=== PATIENT | female | born 1950 | race Two or more races ===

== ENCOUNTER 2019-11-26 19:53 | Emergency (ER) | payer OTHER, MEDICAID ==
[~2019-11-26] VITALS: Ht 154.9 cm; Wt 64.4 kg
[2019-11-26] MEDS ORDERED: ACETAMINOPHEN 325 MG TAB PO ONE (21:45)
[2019-11-26 22:38] LABS: Basophils # (auto) 0.1 10 ^3/uL (0-0.2); Basophils % (auto) 0.4 % (0.0-2.0); Eosinophils # (auto) 0 10 ^3/uL (0-0.8); Eosinophils % (auto) 0.1 % (0.0-7.0); Hematocrit 37.6 % (36.0-46.0); Hemoglobin 12.7 g/dL (12.2-16.2); Lymphocytes # (auto) 0.8 10 ^3/uL (0.4-5.4); Lymphocytes % (auto) 5.6 % (10.0-50.0); Mean Corpuscular Hemoglobin 29.9 pg (28.0-32.0); Mean Corpuscular Hgb Conc. 33.8 g/dL (32.0-36.0); Mean Corpuscular Volume 88.4 fL (80.0-100.0); Monocytes % (auto) 13.9 % (0.0-12.0); Neutrophils # (auto) 11.4 10 ^3/uL (1.6-8.6); Platelet Count (auto) 186 10^3/uL (140-450); Red Blood Cells 4.26 10^6/uL (4.0-5.20); Red Cell Distribution Width 12.6 % (11.8-14.3); White Blood Cell 14.2 10^3/uL (4.4-10.8)
[2019-11-26 22:57] LABS: Chloride 96 mmol/L (98-107); Potassium 4.5 mmol/L (3.5-5.1); Sodium 129 mmol/L (136-145)
[2019-11-26 23:00] LABS: INR 1.03 (0.9-1.15); Partial Thromboplastin Time 23.7 sec (23.64-32.05)
[2019-11-26 23:05] LABS: Urine Bacteria MANY /hpf (None Seen); Urine Blood 1+ /uL (Negative); Urine Budding Yeast FEW /hpf (None Seen); Urine Specific Gravity 1.015 (1.001-1.035); Urine Sperm PRESENT /hpf (None Seen); Urine WBC 352 /hpf (0 - 5); Urine WBC Clumps PRESENT /hpf (None Seen)
[2019-11-26 23:05] LABS: Alanine Aminotransferase 18 U/L (13-56); Albumin 2.9 g/dL (3.4-5.0); Alkaline Phosphatase 95 U/L (45-117); Anion Gap 7 (5-15); Aspartate Aminotransferase 11 U/L (15-37); BUN/Creatinine Ratio 23.6; Bilirubin, Total 0.5 mg/dL (0.2-1.0); Blood Urea Nitrogen 25 mg/dL (7-18); Calcium 8.8 mg/dL (8.5-10.1); Carbon Dioxide 26 mmol/L (21-32); GFR African American 63 mL/min; GFR Non-African American 52 mL/min; Glucose 355 mg/dL (74-106); Total Protein 8.2 g/dL (6.4-8.2)
[2019-11-27 01:28] VITALS: BP 127/84
[2019-11-27] MEDS ORDERED: CIPROFLOXACIN HYDROCHLORIDE 250 MG TAB PO ONE (01:30)
[2019-11-27] MEDS ORDERED: CIPROFLOXACIN HCL 500 MG TAB PO ONE (01:45)
[2019-11-27] MEDS ORDERED: ACETAMINOPHEN 500 MG TAB PO ONE (01:45)
== END 2019-11-27 02:06 | disposition home or self-care (01) ==
LOC: EDBD 19:53 → ER 19:53
DX: J02.0 Streptococcal pharyngitis (principal); N39.0 Urinary tract infection, site not specified; R06.02 Shortness of breath; Z20.828 Contact with and (suspected) exposure to other viral communicable diseases
CPT/HCPCS: 36415; 71045; 80053; 81001; 83605; 83880; 84484; 85025; 85610; 85730; 87040; 87804; 87880; 93005; 99285; C9803; U0003

== ENCOUNTER 2019-11-29 17:13 | Inpatient (IN) | payer OTHER, MEDICAID ==
[~2019-11-29] VITALS: Ht 162.6 cm; Wt 74.4 kg
[2019-11-29] MEDS: InsuLIN R (HUMAN) 100 UNITS in SODIUM CHL 0.9% 99 ML IV SCH (02:01)
[2019-11-29] MEDS ORDERED: SODIUM CHLORIDE 0.9% 1,000 ML IVB ONE (17:51)
[2019-11-29] MEDS ORDERED: ONDANSETRON HCL 4 MG/2 ML VIAL IV ONE (18:00)
[2019-11-29 18:43] LABS: Basophils # (auto) 0.1 10 ^3/uL (0-0.2); Basophils % (auto) 0.4 % (0.0-2.0); Eosinophils # (auto) 0 10 ^3/uL (0-0.8); Hematocrit 38.1 % (36.0-46.0); Hemoglobin 11.9 g/dL (12.2-16.2); Lymphocytes # (auto) 1.1 10 ^3/uL (0.4-5.4); Lymphocytes % (auto) 4.9 % (10.0-50.0); Mean Corpuscular Hemoglobin 29.1 pg (28.0-32.0); Mean Corpuscular Hgb Conc. 31.1 g/dL (32.0-36.0); Mean Corpuscular Volume 93.5 fL (80.0-100.0); Monocytes # (auto) 2.2 10 ^3/uL (0-1.3); Neutrophils # (auto) 18.8 10 ^3/uL (1.6-8.6); Neutrophils % (auto) 84.7 % (37.0-80.0); Platelet Count (auto) 217 10^3/uL (140-450); Red Blood Cells 4.08 10^6/uL (4.0-5.20); Red Cell Distribution Width 14.1 % (11.8-14.3); White Blood Cell 22.2 10^3/uL (4.4-10.8)
[2019-11-29 18:52] LABS: Calcium 8.8 mg/dL (8.5-10.1); INR 1.15 (0.9-1.15); Magnesium 2.6 mg/dL (1.6-2.6); Partial Thromboplastin Time 26.5 sec (23.64-32.05); Potassium 4.3 mmol/L (3.5-5.1)
[2019-11-29] MEDS ORDERED: SODIUM CHLORIDE 0.9% 1,000 ML IV ONE (19:00)
[2019-11-29 19:01] LABS: BUN/Creatinine Ratio 31.8; Bilirubin, Total 0.4 mg/dL (0.2-1.0); Total Protein 7.6 g/dL (6.4-8.2)
[2019-11-29] MEDS ORDERED: DEXTROSE (50%) 50ML SYRG IV PRN ×2 (19:30→21:45)
[2019-11-29 19:41] LABS: Albumin 2.3 g/dL (3.4-5.0)
[2019-11-29] MEDS ORDERED: PANTOPRAZOLE 40 MG/10 ML VIAL INJ IV ONE (20:45)
[2019-11-29] MEDS ORDERED: cefTRIAXone 1GM/50ML D5W 50 ML IV ONE (20:45)
[2019-11-29] MEDS ORDERED: SODIUM BICARBONATE 8.4 % INJ 50ML VIAL IV ONE ×2 (21:30)
[2019-11-29] MEDS ORDERED: INSULIN LANTUS (GLARGINE) 1 /0.01ml (100units/ml) SC ONE (21:45)
[2019-11-29] MEDS ORDERED: NITROGLYCERIN 0.4 MG SL TAB SL PRN (21:45)
[2019-11-29] MEDS ORDERED: ZOLPIDEM TARTRATE 5 MG TAB PO PRN (21:45)
[2019-11-29] MEDS ORDERED: MORPHINE SULF INJ 2 MG/ML SYRINGE 1ML IV PRN (21:45)
[2019-11-29] MEDS ORDERED: LORazepam 0.5 MG TAB PO PRN (21:45)
[2019-11-29] MEDS ORDERED: POTASSIUM CHL 20MEQ/100ML 200 ML IV PRN (21:45)
[2019-11-29] MEDS ORDERED: ENOXAPARIN SOD 80 MG/0.8ML SYRINGE SC SCH (22:00)
[2019-11-29] MEDS: ACCU-CHEK COMFORT CURVE STRIP VI SCH (22:51)
[2019-11-29] MEDS: CARVEDILOL 3.125 MG TAB PO SCH (23:14)
[2019-11-29] MEDS: ATORVASTATIN 20 MG TAB PO SCH (23:15)
[2019-11-29] MEDS ORDERED: SODIUM CHLORIDE 0.9% 1,000 ML IV SCH (23:19)
[2019-11-29] MEDS: SODIUM CHLORIDE 0.9% 1,000 ML IV SCH (23:55)
[2019-11-30] MEDS: SODIUM CHLORIDE 0.9% 1,000 ML IV SCH ×2 (01:00→03:00)
[2019-11-30 01:06] LABS: BUN/Creatinine Ratio 32.8; Calcium 8.9 mg/dL (8.5-10.1)
[2019-11-30] MEDS ORDERED: SODIUM CHLORIDE 0.9% 1,000 ML IV SCH ×3 (01:19→03:43)
[2019-11-30] MEDS: D5W/SOD CHL 0.45%/KCL 20MEQ 1,000 ML IV SCH ×2 (02:00→03:26)
[2019-11-30] MEDS: ACCU-CHEK COMFORT CURVE STRIP VI SCH ×6 (02:00→18:04)
[2019-11-30] MEDS: InsuLIN R (HUMAN) 100 UNITS in SODIUM CHL 0.9% 99 ML IV SCH ×4 (02:00→06:30)
[2019-11-30] MEDS ORDERED: InsuLIN REG 1unit/0.01ml Soln (100units/ml) ONE (02:24)
[2019-11-30 04:30] LABS: Potassium 3.8 mmol/L (3.5-5.1)
[2019-11-30 04:36] LABS: BUN/Creatinine Ratio 36.9; Calcium 7.6 mg/dL (8.5-10.1)
[2019-11-30] MEDS ORDERED: DEXTROSE (50%) 50ML SYRG IV PRN ×2 (07:45→11:30)
[2019-11-30] MEDS ORDERED: InsuLIN REG 1unit/0.01ml Soln (100units/ml) SC SCH ×2 (08:00→14:00)
[2019-11-30] MEDS ORDERED: ACCU-CHEK COMFORT CURVE STRIP VI SCH (08:00)
[2019-11-30] MEDS: INSULIN LANTUS (GLARGINE) 1 /0.01ml (100units/ml) SC SCH (08:44)
[2019-11-30] MEDS ORDERED: ASPirin 81 mg TAB PO SCH (10:00)
[2019-11-30] MEDS ORDERED: CLOPIDOGREL BISULFATE 75 MG TAB PO SCH (10:00)
[2019-11-30] MEDS ORDERED: INSULIN LANTUS (GLARGINE) 1 /0.01ml (100units/ml) SC SCH (10:00)
[2019-11-30] MEDS: DOCUSATE SOD 100 MG CAP PO SCH (10:21)
[2019-11-30] MEDS: CARVEDILOL 3.125 MG TAB PO SCH ×2 (10:22→22:12)
[2019-11-30] MEDS: LISINOPRIL 10 MG TAB PO SCH (10:23)
[2019-11-30 10:27] LABS: BUN/Creatinine Ratio 34.4; Calcium 7.8 mg/dL (8.5-10.1); Potassium 3.7 mmol/L (3.5-5.1)
--- NOTE | 2019-11-30 10:50 | NUR ---
Telemetry admit from ER [facility] admitted to Telemetry unit after SBAR received. Patient oriented to Sarah Knutson, RN primary RN, unit, room, bed, and unit policies regarding patient care and visiting hours. Patient now on continuous telemetry monitoring, tele box # 71 and telemetry reading on arrival to unit is SR 80's. Weighed by bedscale and encouraged to call if they need something. All questions and concerns addressed, patient verbalized understanding.
--- NOTE | 2019-11-30 11:03 | NUR ---
Dr. Stacy at bedside Updating patient on POC. New orders received/carried out. See orders.
[2019-11-30 11:09] VITALS: BP 142/65
[2019-11-30] MEDS ORDERED: GLIP10TA9 PO (11:39)
[2019-11-30] MEDS ORDERED: ACET-1156 PO (11:39)
[2019-11-30] MEDS ORDERED: GABA300C10 PO (11:39)
[2019-11-30] MEDS ORDERED: LOSA-69 PO (11:39)
[2019-11-30] MEDS ORDERED: SIMV-8 PO (11:39)
[2019-11-30] MEDS ORDERED: INSUINJ2 SC (11:39)
[2019-11-30] MEDS: PIPERACILLIN-TAZOB 3.375GM 100 ML IV SCH ×2 (12:08→17:55)
[2019-11-30] MEDS: InsuLIN REG 1unit/0.01ml Soln (100units/ml) SC SCH ×3 (12:22→18:05)
[2019-11-30 13:00] VITALS: BP 139/66
--- NOTE | 2019-11-30 14:00 | NUR ---
Urine sample Patient aware of need for urine sample for UA. Supplies at bedside. Will continue to monitor.
[2019-11-30] MEDS: D5W/SOD CHLO 0.9% 1,000 ML IV SCH (15:42)
--- NOTE | 2019-11-30 16:01 | NUR ---
Abdominal pain Patient reporting 10/10 abdominal pain. Patient has no PRN pain medications. Contacting Dr. Stacy for orders.
--- NOTE | 2019-11-30 16:07 | NUR ---
New orders New orders received from Dr. Stacy for Morphine 1mg IV Q3hr PRN. Orders carried out.
[2019-11-30] MEDS: MORPHINE SULF INJ 2 MG/ML SYRINGE 1ML IV PRN ×2 (16:22→21:29)
[2019-11-30 16:37] VITALS: BP 144/60
--- NOTE | 2019-11-30 16:40 | NUR ---
Spoke to Jameel Adam (GI) Discussed POC. New orders received for morning labs. Per Dr. Jair ugalde to advance diet to clear liquid. MD will not address GI issues (possible EGD, acute cholecystitis) until after C procedure and once cardiac clearance is obtained from Dr. Higgins. Will carry out orders.
[2019-11-30] MEDS: SUCRALFATE 1 GM/10 ML ORAL SUSP PO SCH ×2 (17:55→22:12)
[2019-11-30 18:08] LABS: BUN/Creatinine Ratio 31.8; Potassium 3.5 mmol/L (3.5-5.1)
--- NOTE | 2019-11-30 18:45 | NUR ---
Urine collected and sent to lab. Will continue to monitor.
[2019-11-30 19:51] LABS: Urine Bacteria NONE SEEN /hpf (None Seen); Urine Blood 2+ /uL (Negative); Urine Budding Yeast FEW /hpf (None Seen); Urine Specific Gravity 1.017 (1.001-1.035); Urine WBC 24 /hpf (0 - 5)
[2019-11-30 21:12] VITALS: BP 135/60
[2019-11-30] MEDS: PANTOPRAZOLE 40 MG/10 ML VIAL INJ IV SCH (22:12)
[2019-11-30] MEDS: ATORVASTATIN 20 MG TAB PO SCH (22:13)
[2019-12-01] MEDS: PIPERACILLIN-TAZOB 3.375GM 100 ML IV SCH ×4 (00:01→17:57)
[2019-12-01] MEDS: D5W/SOD CHLO 0.9% 1,000 ML IV SCH (00:50)
[2019-12-01] MEDS: MORPHINE SULF INJ 2 MG/ML SYRINGE 1ML IV PRN ×6 (01:06→22:26)
[2019-12-01] MEDS: ACCU-CHEK COMFORT CURVE STRIP VI SCH ×6 (02:13→22:20)
[2019-12-01] MEDS: InsuLIN REG 1unit/0.01ml Soln (100units/ml) SC SCH ×5 (02:21→17:57)
[2019-12-01 05:00] VITALS: BP 112/46
[2019-12-01] MEDS: SUCRALFATE 1 GM/10 ML ORAL SUSP PO SCH ×4 (06:01→22:19)
[2019-12-01] MEDS: INSULIN LANTUS (GLARGINE) 1 /0.01ml (100units/ml) SC SCH (06:26)
--- NOTE | 2019-12-01 08:00 | NUR ---
Morning note Patient resting in bed with even and unlabored respirations, no distress noted. Instructed patient on POC, fall precautions and to call for assistance as needed. Patient verbalized understanding. Fall precautions in place with call light within reach.
[2019-12-01 08:02] LABS: Basophils # (auto) 0 10 ^3/uL (0-0.2); Basophils % (auto) 0.2 % (0.0-2.0); Eosinophils # (auto) 0 10 ^3/uL (0-0.8); Hematocrit 36.7 % (36.0-46.0); Hemoglobin 11.8 g/dL (12.2-16.2); Lymphocytes # (auto) 1.1 10 ^3/uL (0.4-5.4); Lymphocytes % (auto) 6.5 % (10.0-50.0); Mean Corpuscular Hemoglobin 29.1 pg (28.0-32.0); Mean Corpuscular Hgb Conc. 32.2 g/dL (32.0-36.0); Mean Corpuscular Volume 90.2 fL (80.0-100.0); Monocytes # (auto) 1.4 10 ^3/uL (0-1.3); Monocytes % (auto) 8.4 % (0.0-12.0); Neutrophils # (auto) 14.2 10 ^3/uL (1.6-8.6); Neutrophils % (auto) 84.9 % (37.0-80.0); Platelet Count (auto) 193 10^3/uL (140-450); Red Blood Cells 4.07 10^6/uL (4.0-5.20); Red Cell Distribution Width 13.5 % (11.8-14.3); White Blood Cell 16.7 10^3/uL (4.4-10.8)
[2019-12-01 08:19] LABS: Potassium 3.2 mmol/L (3.5-5.1)
--- NOTE | 2019-12-01 08:30 | NUR ---
Patient transferred self to BSC Standby assistance provided by this RN. Patient transferred self to bed with no complications. Call light within reach.
[2019-12-01 08:31] LABS: Albumin 2.1 g/dL (3.4-5.0); BUN/Creatinine Ratio 29.4; Bilirubin, Total 0.3 mg/dL (0.2-1.0); Calcium 8.4 mg/dL (8.5-10.1); Magnesium 2.4 mg/dL (1.6-2.6); Total Protein 6.9 g/dL (6.4-8.2)
[2019-12-01] MEDS: PANTOPRAZOLE 40 MG/10 ML VIAL INJ IV SCH ×2 (08:33→22:19)
[2019-12-01] MEDS: DOCUSATE SOD 100 MG CAP PO SCH (08:33)
[2019-12-01] MEDS: LISINOPRIL 10 MG TAB PO SCH (08:33)
[2019-12-01] MEDS: CARVEDILOL 3.125 MG TAB PO SCH ×2 (08:34→22:19)
[2019-12-01 09:00] VITALS: BP 161/76
[2019-12-01 09:05] LABS: INR 1.05 (0.9-1.15); Partial Thromboplastin Time 25.5 sec (23.64-32.05)
--- NOTE | 2019-12-01 10:29 | NUR ---
Returned family member's phone call for update Called Sun, patient's daughter, to update on patient's status & POC. Password obtained. Update provided. Requested Sun to contact Laurie, patient's daughter, to update as well. Sun verbalized understanding.
--- NOTE | 2019-12-01 10:41 | NUR ---
RE: Potassium level Message left for Dr. Stacy to notify of potassium level. Addendum: 12/01/19 at 1126 by Jaye Gray RN verbalized understanding. Order received an read back. Updated MD that [facility] is planned for Tuesday, December 03, 2019, per NEEAN Padilla, in brush clearing laborer. verbalized understanding.
--- NOTE | 2019-12-01 11:05 | NUR ---
production technician at bedside
--- NOTE | 2019-12-01 11:05 | NUR ---
Consents signed per MD order. Consents placed in hard chart.
[2019-12-01] MEDS ORDERED: POTASSIUM CHLORIDE 40 MEQ, LIDOCAINE 1% (LOCAL ANESTH.) 4 ML in SODIUM CHL 0.9% 100 ML IV ONE (11:30)
[2019-12-01] MEDS ORDERED: DEXTROSE (50%) 50ML SYRG IV PRN (11:30)
[2019-12-01] MEDS: D5W/SOD CHL 0.45% 1,000 ML IV SCH (11:54)
[2019-12-01 13:00] VITALS: BP 142/37
--- NOTE | 2019-12-01 13:46 | NUR ---
Medication not available - called pharmacy K-rider not available. Called pharmacy to notify. Medication to be delivered to unit per pharmacy customer care specialist.
--- NOTE | 2019-12-01 14:10 | NUR ---
Family called for an update Kristina, patient's daughter, called for an update on patient's status & POC. Password obtained. Update provided.
--- NOTE | 2019-12-01 14:12 | NUR ---
Medication not available - patient off unit K-rider continues not to be available. Patient off unit at nuclear medicine.
--- NOTE | 2019-12-01 15:18 | NUR ---
Medication not available - called pharmacy (3rd time) K-rider not available. Called pharmacy to notify. Medication to be delivered to unit per clinical pharmacy specialist, Pauline.
--- NOTE | 2019-12-01 15:35 | NUR ---
Patient continues to be off unit at nuclear medicine.
--- NOTE | 2019-12-01 15:55 | NUR ---
Patient returned to unit via wheelchair. Respirations even and unlabored, no distress noted.
[2019-12-01 17:00] VITALS: BP 166/83
--- NOTE | 2019-12-01 18:21 | NUR ---
Paged Dr. Huitron to notify of HIDA scan result.
--- NOTE | 2019-12-01 18:39 | NUR ---
Closing note Patient resting in bed with even and unlabored respirations, no distress noted. Fall precautions in place with call light within reach. BSC at bedside.
--- NOTE | 2019-12-01 19:14 | NUR ---
Spoke with Dr. Huitron RE: MARCELA araya MD verbalized understanding. Continue NPO except medications order.
--- NOTE | 2019-12-01 19:26 | NUR ---
Care endorsed to NEENA Calloway.
--- NOTE | 2019-12-01 19:31 | NUR ---
Notified TAI Calloway that PRN IV Morphine administered per MD order. Elli verbalized understanding.
--- NOTE | 2019-12-01 19:35 | NUR ---
Opening Shift Note Received report from Jaye CHAUDHARY. Assumed care of patient, awake and alert. No S/S of distress/SOB. Complaining of epigastric pain, pain medication just given. Instructed on POC and to call for assist PRN. Fall precaution measures in place, will continue to monitor for changes Q1hr and PRN.
--- NOTE | 2019-12-01 21:19 | NUR ---
Family called for update, informed about the POC, they verbalized understanding.
[2019-12-01] MEDS ORDERED: InsuLIN REG 1unit/0.01ml Soln (100units/ml) SC SCH (22:00)
[2019-12-01] MEDS: ATORVASTATIN 20 MG TAB PO SCH (22:20)
[2019-12-01 23:29] VITALS: BP 160/83
[2019-12-02] MEDS: D5W/SOD CHL 0.45% 1,000 ML IV SCH ×2 (01:39→12:55)
[2019-12-02] MEDS: MORPHINE SULF INJ 2 MG/ML SYRINGE 1ML IV PRN ×4 (02:46→22:19)
[2019-12-02] MEDS: ONDANSETRON HCL 4 MG/2 ML VIAL IV PRN (03:15)
[2019-12-02 05:33] VITALS: BP 165/77
[2019-12-02] MEDS: PIPERACILLIN-TAZOB 3.375GM 100 ML IV SCH ×5 (05:55→18:30)
[2019-12-02] MEDS: SUCRALFATE 1 GM/10 ML ORAL SUSP PO SCH ×4 (06:23→22:21)
[2019-12-02] MEDS: ACCU-CHEK COMFORT CURVE STRIP VI SCH ×4 (06:41→22:21)
[2019-12-02] MEDS: INSULIN LANTUS (GLARGINE) 1 /0.01ml (100units/ml) SC SCH (06:42)
[2019-12-02] MEDS: InsuLIN REG 1unit/0.01ml Soln (100units/ml) SC SCH ×4 (06:42→22:21)
--- NOTE | 2019-12-02 07:09 | NUR ---
Pain medication given. Instructed to keep NPO for procedure today. Endorsed care to Jaye CHAUDHARY.
--- NOTE | 2019-12-02 07:23 | NUR ---
Patient transferred to cath lab radiological technologist via hospital bed. Respirations even and unlabored, no distress noted. IV's patent with no s/s of infiltration or phlebitis.
[2019-12-02] MEDS ORDERED: IODIXANOL 320MG/ML 100ML BTL IV ONE (07:42)
[2019-12-02] MEDS ORDERED: LIDOCAINE 2%HCL (LOCAL ANESTH.) INJ 20ML MDV ONE (07:42)
[2019-12-02 07:56] LABS: Albumin 2.1 g/dL (3.4-5.0); Calcium 7.9 mg/dL (8.5-10.1)
[2019-12-02 08:00] LABS: Bilirubin, Total 0.4 mg/dL (0.2-1.0); Total Protein 6.8 g/dL (6.4-8.2)
[2019-12-02] MEDS ORDERED: ANGIOMAX 250 MG VIAL IV ONE (08:00)
[2019-12-02] MEDS ORDERED: HEPARIN SODIUM (PORCINE) 5000 UNITS/ML 1ML VIAL ONE ×2 (08:00→08:38)
[2019-12-02 08:01] LABS: Basophils # (auto) 0 10 ^3/uL (0-0.2); Basophils % (auto) 0.2 % (0.0-2.0); Eosinophils # (auto) 0 10 ^3/uL (0-0.8); Eosinophils % (auto) 0.1 % (0.0-7.0); Hematocrit 37.2 % (36.0-46.0); Hemoglobin 12.2 g/dL (12.2-16.2); Lymphocytes # (auto) 1.6 10 ^3/uL (0.4-5.4); Lymphocytes % (auto) 7.6 % (10.0-50.0); Mean Corpuscular Hgb Conc. 32.7 g/dL (32.0-36.0); Mean Corpuscular Volume 88.8 fL (80.0-100.0); Monocytes % (auto) 9.6 % (0.0-12.0); Neutrophils # (auto) 17.1 10 ^3/uL (1.6-8.6); Neutrophils % (auto) 82.5 % (37.0-80.0); Nucleated Red Blood Cells % 0.1 %; Platelet Count (auto) 203 10^3/uL (140-450); Red Blood Cells 4.19 10^6/uL (4.0-5.20); Red Cell Distribution Width 13.6 % (11.8-14.3); White Blood Cell 20.7 10^3/uL (4.4-10.8)
[2019-12-02] MEDS ORDERED: MIDAZOLAM HCL 1MG/1ML-2 ML VIAL ONE ×2 (08:01→13:39)
[2019-12-02] MEDS ORDERED: VERAPAMIL 2.5MG/ML INJ 2ML VIAL IV ONE (08:01)
[2019-12-02] MEDS ORDERED: fentaNYL CITRATE 100 MCG/2 ML VL ONE ×2 (08:01→13:39)
[2019-12-02] MEDS ORDERED: ONDANSETRON HCL 4 MG/2 ML VIAL ONE (08:02)
[2019-12-02] MEDS ORDERED: SODIUM CHL 0.9% 0 ML ONE (08:02)
[2019-12-02 08:21] LABS: Potassium 2.9 mmol/L (3.5-5.1)
--- NOTE | 2019-12-02 08:26 | NUR ---
RE: Critical potassium Received critical potassium level from Dorita Clemons RN. This RN notified Dr. Stacy. verbalized understanding. Order received and read back to verify. Patient is at quality assurance/r&d lab technician. Notified Tatianna quality assurance/r&d lab technician RN. RN verbalized understanding. Notified pharmacist to send medication to quality assurance/r&d lab technician per Dr. Stacy's order. Pharmacist verbalized understanding.
[2019-12-02] MEDS ORDERED: POTASSIUM CHLORIDE 60 MEQ, LIDOCAINE 1% (LOCAL ANESTH.) 6 ML in SODIUM CHL 0.9% 500 ML IV ONE (08:30)
--- NOTE | 2019-12-02 08:37 | NUR ---
RE: Intervention Patient off unit at procedure. Addendum: 12/02/19 at 1010 by Jaye Gray RN Amended: Links added.
[2019-12-02] MEDS ORDERED: SPIRONOLACTONE 25 MG TAB PO ONE (09:15)
--- NOTE | 2019-12-02 09:22 | NUR ---
Family called for an update Patient's daughter called for an update on patient's status & POC. Password obtained. Update provided.
[2019-12-02 09:30] VITALS: BP 134/81
--- NOTE | 2019-12-02 09:30 | NUR ---
Patient returned to unit via hospital bed Respirations even and unlabored, no distress noted. Catheterization site assessed for any bleeding, redness or swelling. Vasc-band device in place. Site is clean, dry and intact. Radial pulse on affected arm assessed for positive tissue perfusion. Patient instructed on need to notify staff immediately if any pain, burning or wetness to site, and any lower back pain. Patient verbalized understanding. Fall precautions in place with call light within reach; bed alarm on for safety.
--- NOTE | 2019-12-02 09:57 | NUR ---
2ml of air removed from vasc-band No bleeding or swelling noted. Site is clean, dry and intact.
[2019-12-02] MEDS: DOCUSATE SOD 100 MG CAP PO SCH (10:00)
[2019-12-02] MEDS: PANTOPRAZOLE 40 MG/10 ML VIAL INJ IV SCH ×2 (10:00→22:19)
[2019-12-02] MEDS: CARVEDILOL 3.125 MG TAB PO SCH ×2 (10:06→22:20)
[2019-12-02] MEDS: LISINOPRIL 10 MG TAB PO SCH (10:07)
--- NOTE | 2019-12-02 10:12 | NUR ---
2ml of air removed from vasc-band No bleeding or swelling noted. Site is clean, dry and intact.
--- NOTE | 2019-12-02 10:29 | NUR ---
2ml of air removed from vasc-band No bleeding or swelling noted. Site is clean, dry and intact.
--- NOTE | 2019-12-02 10:53 | NUR ---
2ml of air removed from vasc-band No bleeding or swelling noted. Site is clean, dry and intact.
--- NOTE | 2019-12-02 11:05 | NUR ---
2ml of air removed from vasc-band No bleeding or swelling noted. Site is clean, dry and intact.
--- NOTE | 2019-12-02 11:23 | NUR ---
MD was at bedside - Dr. Stacy POC discussed with this RN. Notified MD of elevated WBC and patient's report of pain and nausea. MD verbalized understanding. Orders received and read back to verify.
[2019-12-02] MEDS ORDERED: METOCLOPRAMIDE HCL 5MG/ml INJ 2ml VIAL IV PRN (11:30)
[2019-12-02] MEDS ORDERED: DEXTROSE (50%) 50ML SYRG IV PRN (11:30)
--- NOTE | 2019-12-02 11:30 | NUR ---
Vasc-Band removed Cath site is dry with no ecchymosis, bleeding or swelling noted. Gauze and Tegaderm placed. Radial pulse present. Skin color WNL. No sensory deficit per patient. Respirations even and unlabored
--- NOTE | 2019-12-02 12:41 | NUR ---
Patient transferred to Pre-op via hospital bed. Respirations even and unlabored, no distress noted. K-rider being administered through IV in the LFA. Informed NEENA Blood, that IV to the RFA is infiltrated. Caitie verbalized understanding. Consents not signed due to an order not in place to consent patient and due to medications patient received this morning during catheterization procedure. Caitie verbalized understanding.
[2019-12-02 13:01] VITALS: BP 150/62
[2019-12-02] MEDS ORDERED: NEOSTIGMINE 1 MG/ML INJ (10mg/10ML VIAL) IV ONE (13:39)
[2019-12-02] MEDS ORDERED: GLYCOPYRROLATE 0.2 MG/ML 1ML VIAL IV ONE (13:39)
[2019-12-02] MEDS ORDERED: MEPERIDINE HCL (50 MG/ML) 1 ML VIAL ONE (13:39)
[2019-12-02] MEDS ORDERED: POVIDONE IODINE 10 % TOPICAL OINT 30GM TOP ONE (13:54)
[2019-12-02] MEDS ORDERED: SUCCINYLCHOLINE CHLORIDE 20 MG/ML 10ML VIAL IV ONE (13:55)
--- NOTE | 2019-12-02 14:00 | NUR ---
RE: intervention Patient off unit at procedure. Addendum: 12/02/19 at 1436 by Jaye Gray RN Amended: Links added.
[2019-12-02] MEDS ORDERED: DexAMETHasone SOD PHOS 10MG/1ML VIAL INJ ONE (14:17)
[2019-12-02] MEDS ORDERED: ETOMIDATE (2MG/ML) 20ML VIAL IV ONE (14:17)
[2019-12-02] MEDS ORDERED: ROCURONIUM 10MG/ML 10ML VIAL IV ONE (14:18)
--- NOTE | 2019-12-02 14:29 | NUR ---
Est enegy needs [id number] kcal (20-25 kcal/kg BW 76kg) est protein needs 61-76g (0.8-1g/kg BW 76kg) will reassess prn. Addendum: 12/02/19 at [address] Amended: Links added.
--- NOTE | 2019-12-02 14:36 | NUR ---
RE: Intervention Patient off unit at procedure. Addendum: 12/02/19 at 1436 by Jaye Gray RN Amended: Links added.
[2019-12-02] MEDS ORDERED: LABETALOL HCL 5 MG/ML 4ML SYRINGE IV PRN (14:45)
[2019-12-02] MEDS ORDERED: ONDANSETRON HCL 4 MG/2 ML VIAL IV PRN (14:45)
[2019-12-02] MEDS ORDERED: HYDROmorphone HCL 2 MG/ML VL IV PRN (14:45)
[2019-12-02] MEDS ORDERED: ePHEDrine SULFATE 50 MG/ML AMP IV PRN (14:45)
[2019-12-02] MEDS ORDERED: MORPHINE SULFATE 4 MG/ML SYR/VIAL IV PRN (14:45)
[2019-12-02] MEDS ORDERED: MIDAZOLAM HCL 1MG/1ML-2 ML VIAL IV PRN (14:45)
[2019-12-02] MEDS ORDERED: ACCU-CHEK COMFORT CURVE STRIP VI ONE (14:45)
--- NOTE | 2019-12-02 16:00 | NUR ---
RE: Intervention Patient off unit at procedure. Addendum: 12/02/19 at 1638 by Jaye Gray RN Amended: Links added.
--- NOTE | 2019-12-02 16:14 | NUR ---
assessment Patient is a 69 year old female who is alert and oriented. Patients cognitive abilities are intact. Prior to admission patient lived home with family and functioned independently. Patient is covid positive. Patient informed me she is able to care for her own ADLs. Per patient she will return home to her prior living arrangements post discharge and family will transport her home. Patient informed me she was vomiting and had fever so she called 911 and was admitted. Patient will be assessed prior to discharge for home oxygen needs. Patients PCP is Dr Tillman. Patient feels safe returning home on discharge. I will continue to monitor and follow up as appropriate. I informed patient she has a right to speak to a public health social worker regarding all care. I informed patient she has a right to participate in any and all discharge planning. Patient does not have a POA and advanced directive. I have offered patient information on POA and advanced directives. I informed the patient the advantages and benefits of having an Advanced Directive. Patient verbalized understanding and agreed to discharge plan home. Addendum: 12/02/19 at 1617 by Rachael WILLARD Amended: Links added.
--- NOTE | 2019-12-02 16:36 | NUR ---
RE: Intervention Patient off unit at scheduled procedure. Addendum: 12/02/19 at 1638 by Jaye Gray RN Amended: Links added.
[2019-12-02 17:00] VITALS: BP 150/62
--- NOTE | 2019-12-02 17:15 | NUR ---
patient returned to unit via hospital bed Vital signs taken, surgical site assessed for redness, swelling, or bleeding. Two surgical incision sites noted to above the umbilicus area. Third surgical incision site noted to the RLQ where REBEKAH drain is at. Dressings are clean, dry and intact. ABD is soft to palpitation. Abdominal binder in place. Patient instructed on need to inform staff immediately for any pain, swelling, bleeding or pulling or popping sensations at surgical site. Patient verbalized understanding. Fall precautions in place with bed in lowest locked position, call light within reach and bed alarm on for safety.
[2019-12-02 17:37] VITALS: BP 107/54
--- NOTE | 2019-12-02 18:30 | NUR ---
IV discontinued/IV started 22g IV started to the LHA with aseptic technique. IV secured and IV education provided. Patient verbalized understanding. Call light within reach. IV removed to the RFA with aseptic technique. Catheter intact. Dressing applied. Patient tolerated well, no trauma to site.
--- NOTE | 2019-12-02 18:58 | NUR ---
Closing note Patient resting in bed with even and unlabored respirations, no distress noted. Dressing to the abdomen is clean, dry and intact with abdomen soft to palpitation. Abdominal binder in place. Fall precautions in place with call light within reach. Bed alarm on for safety.
--- NOTE | 2019-12-02 18:58 | NUR ---
REBEKAH Drain output = 50 ml serosanguineous
--- NOTE | 2019-12-02 19:04 | NUR ---
Care endorsed to NEENA Calloway.
[2019-12-02 22:00] VITALS: BP 143/57
[2019-12-02] MEDS: ATORVASTATIN 20 MG TAB PO SCH (22:20)
[2019-12-03] MEDS: PIPERACILLIN-TAZOB 3.375GM 100 ML IV SCH ×4 (00:06→18:02)
[2019-12-03] MEDS: D5W/SOD CHL 0.45% 1,000 ML IV SCH ×2 (02:20→10:55)
[2019-12-03] MEDS: MORPHINE SULF INJ 2 MG/ML SYRINGE 1ML IV PRN ×4 (03:33→22:18)
[2019-12-03 05:00] VITALS: BP 116/59
--- NOTE | 2019-12-03 06:30 | NUR ---
REBEKAH drain output is 100ml of sanguinous fluid.
[2019-12-03] MEDS: SUCRALFATE 1 GM/10 ML ORAL SUSP PO SCH ×4 (06:33→22:01)
[2019-12-03] MEDS: ACCU-CHEK COMFORT CURVE STRIP VI SCH ×4 (06:33→22:02)
[2019-12-03] MEDS: INSULIN LANTUS (GLARGINE) 1 /0.01ml (100units/ml) SC SCH (06:33)
[2019-12-03] MEDS: InsuLIN REG 1unit/0.01ml Soln (100units/ml) SC SCH ×4 (06:34→22:24)
[2019-12-03 07:14] LABS: Basophils # (auto) 0 10 ^3/uL (0-0.2); Basophils % (auto) 0.1 % (0.0-2.0); Eosinophils # (auto) 0 10 ^3/uL (0-0.8); Hematocrit 33.1 % (36.0-46.0); Hemoglobin 10.7 g/dL (12.2-16.2); Lymphocytes # (auto) 1.4 10 ^3/uL (0.4-5.4); Lymphocytes % (auto) 6.9 % (10.0-50.0); Mean Corpuscular Hgb Conc. 32.5 g/dL (32.0-36.0); Mean Corpuscular Volume 89.2 fL (80.0-100.0); Monocytes # (auto) 1.8 10 ^3/uL (0-1.3); Monocytes % (auto) 8.5 % (0.0-12.0); Neutrophils # (auto) 17.3 10 ^3/uL (1.6-8.6); Neutrophils % (auto) 84.5 % (37.0-80.0); Nucleated Red Blood Cells % 0.1 %; Platelet Count (auto) 180 10^3/uL (140-450); Red Blood Cells 3.71 10^6/uL (4.0-5.20); Red Cell Distribution Width 13.1 % (11.8-14.3); White Blood Cell 20.5 10^3/uL (4.4-10.8)
[2019-12-03 07:25] LABS: Albumin 1.7 g/dL (3.4-5.0); Calcium 7.4 mg/dL (8.5-10.1); Magnesium 1.9 mg/dL (1.6-2.6); Potassium 3.4 mmol/L (3.5-5.1)
[2019-12-03 07:30] LABS: BUN/Creatinine Ratio 24.4; Bilirubin, Total 0.4 mg/dL (0.2-1.0); Phosphorus 1.8 mg/dL (2.5-4.90); Total Protein 5.7 g/dL (6.4-8.2)
--- NOTE | 2019-12-03 07:30 | NUR ---
Opening Shift Note Assumed care of patient, awake and alert. No S/S of distress/SOB or pain. Instructed on POC and to call for assist PRN, will continue to monitor for changes Q1hr and PRN. REBEKAH DRAIN IN PLACE. DRAINED 50 ML SANGUINOUS FLUID. ABDOMINAL BINDER IN PLACE. PT IS ENCOURAGED TO AMBULATE TO RELEASE GAS. PT VERBALIZED UNDERSTANDING.
[2019-12-03] MEDS ORDERED: POTASSIUM CHLORIDE 40 MEQ, LIDOCAINE 1% (LOCAL ANESTH.) 4 ML in SODIUM CHL 0.9% 100 ML IV ONE (08:00)
[2019-12-03 09:00] VITALS: BP 140/74
--- NOTE | 2019-12-03 10:15 | NUR ---
Midline Placement: Patient educated on need for midline placement. All risks and benefits explained and all questions and concerns addresses prior to procedure. 18g/10cm midline inserted via right cephalic vein using Ultrasound. Sterile technique utilized. Blood return obtained from lumen and flushed easily with NS using proper technique. Midline secured with saline lock; biodisc and occlusive dressing applied. Primary RN notified. Midline lot # [id number]
[2019-12-03] MEDS: DOCUSATE SOD 100 MG CAP PO SCH (10:26)
[2019-12-03] MEDS: LISINOPRIL 10 MG TAB PO SCH (10:27)
[2019-12-03] MEDS: PANTOPRAZOLE 40 MG/10 ML VIAL INJ IV SCH ×2 (10:27→22:01)
[2019-12-03] MEDS: CARVEDILOL 3.125 MG TAB PO SCH ×2 (10:27→22:02)
[2019-12-03] MEDS ORDERED: LIDOCAINE VISCOUS 2% 15ML UD ONE (12:21)
[2019-12-03] MEDS ORDERED: SODIUM CHLORIDE LOCK 10 ML ONE (12:22)
[2019-12-03] MEDS ORDERED: diphenhdrAMINE HCL 50 MG/1 ML VL ONE (12:22)
[2019-12-03 13:00] VITALS: BP 117/55
[2019-12-03] MEDS: fentaNYL CITRATE 100 MCG/2 ML VL ONE ×2 (13:34→13:35)
[2019-12-03] MEDS: MIDAZOLAM HCL 5 MG/ML-1ML VIAL ONE ×2 (13:34→13:35)
--- NOTE | 2019-12-03 17:30 | NUR ---
PT NOTES PT RESTING IN BED. GIVEN MORPHINE, IVP FOR PAIN. PT INFORMED THAT SHE WILL NEED TO START AMBULATING RADHA. PT IS EDUCATED ON THE BENEFIT OF AMBULATION S/P SURGERY AND ALSO COMPLICATIONS FROM IMMOBILITY. PT VERBALIZED UNDERSTANDING AND STATED THAT SHE WILL AMBULATE TOMORROW WITH PHYSICAL THERAPIST.
--- NOTE | 2019-12-03 17:31 | NUR ---
Pt refused PT eval. Will attempt again tomorrow.
[2019-12-03 17:37] VITALS: BP 142/82
[2019-12-03] MEDS: NYSTATIN (MOUTH-THROAT) 500,000 UNITS/5 ML SUSP MT SCH ×2 (18:02→22:01)
--- NOTE | 2019-12-03 19:20 | NUR ---
Opening Shift Note Received report from Debbie CHAUDHARY. Assumed care of patient, awake and alert. No S/S of distress/SOB or pain. Instructed on POC and to call for assist PRN, will continue to monitor for changes Q1hr and PRN.
[2019-12-03 22:00] VITALS: BP 159/77
[2019-12-03] MEDS: ATORVASTATIN 20 MG TAB PO SCH (22:01)
[2019-12-04] MEDS: PIPERACILLIN-TAZOB 3.375GM 100 ML IV SCH ×4 (00:06→17:35)
[2019-12-04] MEDS: D5W/SOD CHL 0.45% 1,000 ML IV SCH ×2 (04:50→18:15)
[2019-12-04 05:00] VITALS: BP 162/78
[2019-12-04] MEDS: NYSTATIN (MOUTH-THROAT) 500,000 UNITS/5 ML SUSP MT SCH ×4 (05:44→21:55)
[2019-12-04] MEDS: ONDANSETRON HCL 4 MG/2 ML VIAL IV PRN (05:45)
--- NOTE | 2019-12-04 06:46 | NUR ---
REBEKAH drain output is 70ml serosanguineous fluid
[2019-12-04] MEDS: ACCU-CHEK COMFORT CURVE STRIP VI SCH ×4 (06:52→22:07)
[2019-12-04] MEDS: SUCRALFATE 1 GM/10 ML ORAL SUSP PO SCH ×4 (06:52→21:56)
[2019-12-04] MEDS: INSULIN LANTUS (GLARGINE) 1 /0.01ml (100units/ml) SC SCH (06:52)
[2019-12-04] MEDS: InsuLIN REG 1unit/0.01ml Soln (100units/ml) SC SCH ×4 (06:53→22:19)
[2019-12-04] MEDS: PANTOPRAZOLE 40 MG/10 ML VIAL INJ IV SCH ×2 (08:17→21:56)
[2019-12-04] MEDS: LISINOPRIL 10 MG TAB PO SCH (08:27)
[2019-12-04] MEDS: CARVEDILOL 3.125 MG TAB PO SCH ×3 (08:28→23:00)
[2019-12-04] MEDS: DOCUSATE SOD 100 MG CAP PO SCH (08:34)
--- NOTE | 2019-12-04 08:59 | NUR ---
RE: Elevated BP - contacted MD Message left with Dr. Stacy to notify of elevated BP 172/75 mmHG, HR SR 88 bpm. Patient denies severe pain. Scheduled PO morning BP medications administered. Addendum: 12/04/19 at 0936 by Jaye Gray RN MD verbalized understanding at 0905. Continue to monitor per MD order.
[2019-12-04 09:00] VITALS: BP 155/69
--- NOTE | 2019-12-04 10:28 | NUR ---
MD was at bedside - Dr. Stacy Notified MD of patient's recent phosphorus and calcium level. MD verbalized understanding. Order received and read back to verify.
[2019-12-04 10:41] LABS: Basophils # (auto) 0 10 ^3/uL (0-0.2); Basophils % (auto) 0.1 % (0.0-2.0); Eosinophils # (auto) 0.1 10 ^3/uL (0-0.8); Eosinophils % (auto) 0.3 % (0.0-7.0); Hematocrit 31.6 % (36.0-46.0); Hemoglobin 10.4 g/dL (12.2-16.2); Lymphocytes # (auto) 1.5 10 ^3/uL (0.4-5.4); Lymphocytes % (auto) 8.6 % (10.0-50.0); Mean Corpuscular Hemoglobin 29.5 pg (28.0-32.0); Mean Corpuscular Volume 89.2 fL (80.0-100.0); Monocytes # (auto) 1.8 10 ^3/uL (0-1.3); Monocytes % (auto) 10.5 % (0.0-12.0); Neutrophils # (auto) 13.8 10 ^3/uL (1.6-8.6); Neutrophils % (auto) 80.5 % (37.0-80.0); Nucleated Red Blood Cells % 0.1 %; Platelet Count (auto) 226 10^3/uL (140-450); Red Blood Cells 3.54 10^6/uL (4.0-5.20); Red Cell Distribution Width 13.4 % (11.8-14.3); White Blood Cell 17.1 10^3/uL (4.4-10.8)
[2019-12-04] MEDS ORDERED: POTASSIUM PHOSPHATE 22 MEQ in SODIUM CHL 0.9% 100 ML IV ONE (11:00)
[2019-12-04 11:06] LABS: Albumin 1.7 g/dL (3.4-5.0); Calcium 7.5 mg/dL (8.5-10.1)
[2019-12-04 11:10] LABS: Bilirubin, Total 0.4 mg/dL (0.2-1.0); Total Protein 6.1 g/dL (6.4-8.2)
--- NOTE | 2019-12-04 11:13 | NUR ---
re-assessment Today patient is on room air. No oxygen needs today. Addendum: 12/04/19 at 1114 by Rachael WILLARD Amended: Links added.
--- NOTE | 2019-12-04 11:15 | NUR ---
Medication not available - called pharmacy K-phos not available. Called pharmacy to notify. Medication to be delivered to unit.
--- NOTE | 2019-12-04 11:20 | NUR ---
RE: Potassium level Message left for Dr. Stacy to notify of current potassium level. Addendum: 12/04/19 at 1129 by Jaye Gray RN MD sorensen order.
[2019-12-04] MEDS ORDERED: POTASSIUM CHLORIDE 60 MEQ, LIDOCAINE 1% (LOCAL ANESTH.) 6 ML in SODIUM CHL 0.9% 500 ML IV ONE (11:30)
--- NOTE | 2019-12-04 12:00 | NUR ---
RE: K-Segun Medication not able to be administered at this time due to current scheduled IV medications being administered through available IV access. Will administer when IV access is available.
--- NOTE | 2019-12-04 12:52 | NUR ---
Nutrition Followup Note Wt 75.6kg Pt was with care team at time of rounds. Pt with no new signs of distress. Pt is s/p lap wilbert with clear liquid diet. Pt with 100% po intake of CLD 11/30 and 12/02 per RN note. Will continue to monitor po advance and intake. Est enegy needs [id number] kcal (20-25 kcal/kg BW 76kg) est protein needs 61-76g (0.8-1g/kg BW 76kg) will reassess prn. Labs: GLUC 185H, BUN 20H, Ca 7.4L, Alb 2.7L BM: pt with 1 BM 12/03 per Rn note Skin: BS 18 mod risk, full details in managed care specialist note. PES: Overweight r/t caloric intake in excess of needs aeb pt with a BMI of 28.8 kg/m2 Comments: 1) Continue to monitor po intake, labs, skin 2) refer pt to [facility] on Dc 3) Continue current plan of care Expected Outcomes/Goals: 1) Advance diet as medically feasible to CCHO 60g 2) pt to consume >75% of po intake when advanced 3) f/u 2-3 days
[2019-12-04 13:00] VITALS: BP 163/68
--- NOTE | 2019-12-04 13:00 | NUR ---
RE: BP Dr. Stacy aware of patient's elevated BP. Continue to monitor per MD.
--- NOTE | 2019-12-04 15:02 | NUR ---
Medication not available - called pharmacy K-Segun not available. Called pharmacy to notify. Medication to be delivered to unit per gabrielle Jurado tech.
[2019-12-04] MEDS: MORPHINE SULF INJ 2 MG/ML SYRINGE 1ML IV PRN (15:03)
[2019-12-04 17:00] VITALS: BP 155/64
--- NOTE | 2019-12-04 18:00 | NUR ---
Patient assisted with transfer to chair at bedside Standby assistance provided by this RN. Patient tolerated transfer well with no complications noted. Fall precautions in place with call light within reach.
--- NOTE | 2019-12-04 18:15 | NUR ---
Incentive spirometer provided to patient Education provided. Patient verbalized understanding. Patient demonstrated proper use.
--- NOTE | 2019-12-04 18:46 | NUR ---
Closing note Patient resting in bed with even and unlabored respirations, no distress noted. Dressings to the abdomen is clean, dry and intact. Abdominal binder in place. Patient reports pain as tolerable. Dressing to the left wrist s/p heart cath is clean, dry and intact. Fall precautions in place with call light within reach.
--- NOTE | 2019-12-04 18:46 | NUR ---
REBEKAH Drain output = 60 ml serosanguineous
--- NOTE | 2019-12-04 19:30 | NUR ---
Care endorsed to NEENA Curry.
--- NOTE | 2019-12-04 20:00 | NUR ---
Opening Shift Note Assumed care of patient, awake and alert, oriented x 4, follows direction. On room air with even and unlabored respirations, no S/S of distress or SOB. Patient is s/p laporscopic cholecystectomy, active bowels sounds, abd soft upon palpation, denies nausea at this time. Noted medial upper abdominal incisions x 2, dressing are clean, dry and intact. Noted REBEKAH drain to RLQ with REBEKAH bulb to suction, minimal serosanguineous drainage.Patient reported loose bowel movement today. Patient is able to turn independently in bed and reported walking th hallways with physical therapy using a walker. Bed in lowest locked position with side rails up x2 and call light within reach. Instructed on POC and to call for assist PRN, will continue to monitor for changes Q1hr and PRN.
[2019-12-04] MEDS: ATORVASTATIN 20 MG TAB PO SCH (21:56)
[2019-12-04 22:00] VITALS: BP 153/58
[2019-12-05] MEDS: PIPERACILLIN-TAZOB 3.375GM 100 ML IV SCH ×4 (00:07→17:40)
[2019-12-05] MEDS: MORPHINE SULF INJ 2 MG/ML SYRINGE 1ML IV PRN ×4 (03:42→21:36)
[2019-12-05 04:59] VITALS: BP 134/74
[2019-12-05] MEDS: SUCRALFATE 1 GM/10 ML ORAL SUSP PO SCH ×4 (05:38→21:37)
[2019-12-05] MEDS: NYSTATIN (MOUTH-THROAT) 500,000 UNITS/5 ML SUSP MT SCH ×4 (06:11→21:36)
[2019-12-05] MEDS: ACCU-CHEK COMFORT CURVE STRIP VI SCH ×4 (06:11→22:34)
[2019-12-05] MEDS: INSULIN LANTUS (GLARGINE) 1 /0.01ml (100units/ml) SC SCH (06:15)
[2019-12-05] MEDS: InsuLIN REG 1unit/0.01ml Soln (100units/ml) SC SCH ×4 (06:16→22:42)
[2019-12-05] MEDS: ONDANSETRON HCL 4 MG/2 ML VIAL IV PRN ×2 (06:19→15:39)
[2019-12-05 06:34] LABS: Basophils # (auto) 0 10 ^3/uL (0-0.2); Basophils % (auto) 0.1 % (0.0-2.0); Eosinophils # (auto) 0.1 10 ^3/uL (0-0.8); Eosinophils % (auto) 1.1 % (0.0-7.0); Hematocrit 29.3 % (36.0-46.0); Hemoglobin 9.7 g/dL (12.2-16.2); Lymphocytes # (auto) 1.6 10 ^3/uL (0.4-5.4); Lymphocytes % (auto) 12.8 % (10.0-50.0); Mean Corpuscular Hemoglobin 29.5 pg (28.0-32.0); Mean Corpuscular Hgb Conc. 33.2 g/dL (32.0-36.0); Mean Corpuscular Volume 88.9 fL (80.0-100.0); Monocytes # (auto) 1.8 10 ^3/uL (0-1.3); Neutrophils # (auto) 9.2 10 ^3/uL (1.6-8.6); Nucleated Red Blood Cells % 0.1 %; Platelet Count (auto) 213 10^3/uL (140-450); Red Blood Cells 3.29 10^6/uL (4.0-5.20); White Blood Cell 12.7 10^3/uL (4.4-10.8)
[2019-12-05 06:48] LABS: Calcium 7.1 mg/dL (8.5-10.1); Potassium 3.3 mmol/L (3.5-5.1)
--- NOTE | 2019-12-05 06:55 | NUR ---
Closing Note patient resting in bed on room air with even and unlabored respirations, no s/s of distress. Abd binder on. Bed in lowest locked position with side rails up x 2 and call light within reach.
--- NOTE | 2019-12-05 07:18 | NUR ---
REBEKAH Drain output = 65 ml serosanguineous bulb to suction.
--- NOTE | 2019-12-05 07:19 | NUR ---
Endorsed care to day shift NEENA Cornejo
--- NOTE | 2019-12-05 07:30 | NUR ---
Opening shift note Assumed care of patient from NOC NEENA Curry. Patient is AOx4, no s/s of distress or SOB noted. Bed is in lowest locked position call light is within reach and side rails are up x2. Updated patient on plan of care and patient verbalized understanding. Will continue to monitor Q1hr and PRN.
[2019-12-05] MEDS: D5W/SOD CHL 0.45% 1,000 ML IV SCH ×2 (07:35→21:58)
[2019-12-05 09:00] VITALS: BP 145/70
[2019-12-05] MEDS ORDERED: POTASSIUM CHLORIDE 40 MEQ, LIDOCAINE 1% (LOCAL ANESTH.) 4 ML in SODIUM CHL 0.9% 100 ML IV ONE (09:15)
--- NOTE | 2019-12-05 10:15 | NUR ---
Pt requested PT tx later due to diarrhea. Addendum: 12/05/19 at 1658 by Juanito Hansen COSMETIC MAKER Amended: Links added.
[2019-12-05] MEDS: PANTOPRAZOLE 40 MG/10 ML VIAL INJ IV SCH ×2 (10:48→21:36)
[2019-12-05] MEDS: DOCUSATE SOD 100 MG CAP PO SCH (10:49)
[2019-12-05] MEDS: LISINOPRIL 10 MG TAB PO SCH (10:53)
[2019-12-05] MEDS: CARVEDILOL 3.125 MG TAB PO SCH ×2 (10:53→21:52)
--- NOTE | 2019-12-05 11:40 | NUR ---
REBEKAH Drain 30 mL of serosanguineous fluid emptied from drain.
--- NOTE | 2019-12-05 11:58 | NUR ---
Physician rounding Dr. Adam at nurses station. No new orders received. will continue care.
--- NOTE | 2019-12-05 12:28 | NUR ---
Lunch Patient unable to tolerate soft diet. Patient stated "My throat hurts when I try to eat, I can't eat this right now." Will notify MD regarding pain and diet.
--- NOTE | 2019-12-05 12:32 | NUR ---
placed page Paged Dr. Jameel Adam, awaiting call back.
[2019-12-05 13:00] VITALS: BP 145/63
--- NOTE | 2019-12-05 13:30 | NUR ---
Pt refused PT tx citing nausea. Addendum: 12/05/19 at 1700 by Juanito Hansen AWNING MAKER Amended: Links added.
--- NOTE | 2019-12-05 14:25 | NUR ---
Received call back from MD Received call back from Dr. Jameel Adam, updated MD on patient status. New orders received, will follow through, will continue care.
--- NOTE | 2019-12-05 15:48 | NUR ---
REBEKAH Drain Drained 30mL of serosanguineous fluid. Bulb to suction.
[2019-12-05 16:40] VITALS: BP 152/75
--- NOTE | 2019-12-05 18:25 | NUR ---
REBEKAH drain Drained 20mL of serosanguineous fluid, bulb to suction.
--- NOTE | 2019-12-05 19:10 | NUR ---
Received pt. in bed resting, alert, awake, oriented x 4, in Room air, lungs are clear, no s/s of sob or dyspnea. Pt.'s breathing regular and unlabored. Pt. calm and quiet and denies pain @ this time. Pt. on bedrest, able to turn self with minimal assist. Pt. with 2 abdominal incision @ the upper umbilicus, presence of REBEKAH drain @ the Right lower quadrant with min. serosanguineous fluid, mild redness @ the bottom but generally skin intact. Keep pt. safe and bilingual case manager bed with call-light within pt.'s reach.
--- NOTE | 2019-12-05 19:10 | NUR ---
END OF SHIFT NOTE Endorsed care to NOC NEENA Linares. No signs and symptoms of distress noted.
--- NOTE | 2019-12-05 19:39 | NUR ---
Pt. SR @ the Tele Monitor Box # 71 @ 76/min. Pt. @ 70's to 80's @ the monitor.
--- NOTE | 2019-12-05 20:00 | NUR ---
Complete assessment done.
--- NOTE | 2019-12-05 21:36 | NUR ---
IV Morphine Sulfate 2 mg. given for severe pain @ the abdomen or abdominal surgical sites, stabbing and hurting in nature. Pt. given health teaching on the use and benefits of the pain reliever given. Pt. verbalized understanding.
--- NOTE | 2019-12-05 21:36 | NUR ---
Due meds. as scheduled started @ 6 PM. Pt. made aware of the use or benefits of the scheduled meds. Pt. able to swallow whole pills without difficulty.
[2019-12-05] MEDS: ATORVASTATIN 20 MG TAB PO SCH (21:39)
--- NOTE | 2019-12-05 21:52 | NUR ---
Due meds. given @ this time. Pt. made aware of the mechanism of action of the scheduled meds. given.
[2019-12-05 22:00] VITALS: BP 136/78
--- NOTE | 2019-12-05 22:34 | NUR ---
Pt. accucheck taken with result of BS = 177, see s/s coverage as ordered by MD to be given. see/refer to Emar.
--- NOTE | 2019-12-05 22:42 | NUR ---
Pt. given 3 units of Regular Human Insulin SQ @ the MARQUITA for BS = 177. Pt. given explanation of the s/s as ordered by MD. Pt. verbalized understanding and cooperative with the treatment given.
[2019-12-06] MEDS: PIPERACILLIN-TAZOB 3.375GM 100 ML IV SCH ×3 (00:27→11:39)
--- NOTE | 2019-12-06 00:27 | NUR ---
IV Antibiotic Zosyn given @ 33.33 ml./hr. for over 3 hrs. Pt. made aware of the antibiotic given and verb. understanding.
--- NOTE | 2019-12-06 00:30 | NUR ---
Pt. given complete or total bedbath after making a moderate soft, pasty BM. Pt. washed and cleansed. Changed all bed linens, chux and gown. Placed lotion or skin barrier @ the perineal area, sacrum and coccyx areas. Generally skin intact. Scooted HOB up and turned to the sides and supine with HOB Up @ 35-45 degrees angle. New gown was properly placed and placed blanket over the pt.'s body. Keep pt. clean, dry, warm and comfortable in bed.
--- NOTE | 2019-12-06 02:00 | NUR ---
Pt. is sleeping and resting undisturbed. Keep pt. safe and skein yard drier bed. Call-light within reach @ the bedside. SR @ the monitor.
--- NOTE | 2019-12-06 04:00 | NUR ---
Pt. is sleeping and resting quietly. IVF of D5 1/2 NS continuously running @ 75 ml./hr. @ the MARQUITA. SR @ the monitor.
[2019-12-06 05:00] VITALS: BP 140/79
[2019-12-06] MEDS: NYSTATIN (MOUTH-THROAT) 500,000 UNITS/5 ML SUSP MT SCH ×2 (06:30→11:39)
[2019-12-06] MEDS: SUCRALFATE 1 GM/10 ML ORAL SUSP PO SCH ×4 (06:30→22:05)
[2019-12-06] MEDS: MORPHINE SULF INJ 2 MG/ML SYRINGE 1ML IV PRN ×2 (06:32→23:37)
[2019-12-06] MEDS: ACCU-CHEK COMFORT CURVE STRIP VI SCH ×4 (06:53→22:05)
[2019-12-06] MEDS: INSULIN LANTUS (GLARGINE) 1 /0.01ml (100units/ml) SC SCH (06:56)
[2019-12-06] MEDS: InsuLIN REG 1unit/0.01ml Soln (100units/ml) SC SCH ×2 (06:59→12:25)
[2019-12-06 07:57] LABS: Basophils # (auto) 0 10 ^3/uL (0-0.2); Basophils % (auto) 0.2 % (0.0-2.0); Eosinophils # (auto) 0.2 10 ^3/uL (0-0.8); Eosinophils % (auto) 1.3 % (0.0-7.0); Hematocrit 30.5 % (36.0-46.0); Hemoglobin 10.2 g/dL (12.2-16.2); Lymphocytes # (auto) 2.1 10 ^3/uL (0.4-5.4); Lymphocytes % (auto) 16.5 % (10.0-50.0); Mean Corpuscular Hemoglobin 29.7 pg (28.0-32.0); Mean Corpuscular Hgb Conc. 33.5 g/dL (32.0-36.0); Mean Corpuscular Volume 88.8 fL (80.0-100.0); Monocytes # (auto) 1.4 10 ^3/uL (0-1.3); Monocytes % (auto) 11.4 % (0.0-12.0); Neutrophils # (auto) 8.9 10 ^3/uL (1.6-8.6); Neutrophils % (auto) 70.6 % (37.0-80.0); Nucleated Red Blood Cells % 0.1 %; Platelet Count (auto) 222 10^3/uL (140-450); Red Blood Cells 3.44 10^6/uL (4.0-5.20); Red Cell Distribution Width 12.9 % (11.8-14.3); White Blood Cell 12.6 10^3/uL (4.4-10.8)
[2019-12-06 08:27] LABS: Potassium 3.2 mmol/L (3.5-5.1)
[2019-12-06 08:40] LABS: Albumin 1.6 g/dL (3.4-5.0); BUN/Creatinine Ratio 10.7; Bilirubin, Total 0.4 mg/dL (0.2-1.0); Calcium 7.4 mg/dL (8.5-10.1); Total Protein 5.6 g/dL (6.4-8.2)
[2019-12-06 09:00] VITALS: BP 110/57
[2019-12-06] MEDS: LISINOPRIL 10 MG TAB PO SCH (10:00)
[2019-12-06] MEDS: CARVEDILOL 3.125 MG TAB PO SCH ×2 (10:00→22:06)
[2019-12-06] MEDS: DOCUSATE SOD 100 MG CAP PO SCH (10:00)
[2019-12-06] MEDS: D5W/SOD CHL 0.45% 1,000 ML IV SCH (10:15)
[2019-12-06] MEDS: PANTOPRAZOLE 40 MG/10 ML VIAL INJ IV SCH (10:18)
[2019-12-06 13:00] VITALS: BP 148/68
--- NOTE | 2019-12-06 16:00 | NUR ---
Telemetry admit from ER [facility]AI BAJWA admitted to Telemetry unit after SBAR received. Patient oriented to Debbie Nava, primary RN, unit, room, bed, and unit policies regarding patient care and visiting hours. Patient now on continuous telemetry monitoring, tele box # 66 and telemetry reading on arrival to unit is SR 76 . Patient placed on bedside oxygen, weighed by bedscale and encouraged to call if they need something. All questions and concerns addressed, patient verbalized understanding. Note: Addendum: 12/06/19 at 1914 by Debbie Nava RN SARAH CORLEY
--- NOTE | 2019-12-06 16:15 | NUR ---
PAGED DR RAMIREZ RE: PT'S POTASSIUM LEVEL, LOOSE STOOL, AND VTE RISK ASSESSMENT. DR RAMIREZ CAME IN TO SEE PATIENT.
[2019-12-06] MEDS ORDERED: POTASSIUM EFFERVESENT TAB 25 MEQ PO ONE (16:45)
[2019-12-06] MEDS ORDERED: ONDANSETRON HCL 4 MG/2 ML VIAL IV PRN (16:45)
[2019-12-06 17:00] VITALS: BP 159/75
[2019-12-06] MEDS: VANCOMYCIN HCL 125MG/5ML ORAL SOL PO SCH ×2 (18:30→22:05)
--- NOTE | 2019-12-06 19:30 | NUR ---
Opening Shift Note Received report from Debbie CHAUDHARY. Assumed care of patient, awake and alert. No S/S of distress/SOB or pain. Instructed on POC and to call for assist PRN. Fall precaution measures in place, will continue to monitor for changes Q1hr and PRN.
[2019-12-06 22:00] VITALS: BP 159/70
[2019-12-06] MEDS: Glucerna Carbsteady SHAKE Vanilla 8oz PO SCH (22:00)
--- NOTE | 2019-12-06 22:00 | NUR ---
Accu check is 178, patient has no sliding scale.
[2019-12-06] MEDS: ATORVASTATIN 20 MG TAB PO SCH (22:05)
[2019-12-07 05:00] VITALS: BP 154/74
[2019-12-07] MEDS: VANCOMYCIN HCL 125MG/5ML ORAL SOL PO SCH (06:09)
--- NOTE | 2019-12-07 06:45 | NUR ---
Accu check is 157, scheduled Lantus 15unit given.
--- NOTE | 2019-12-07 06:50 | NUR ---
Drained 120ml of serosanguineous fluid from [facility].
[2019-12-07] MEDS: ACCU-CHEK COMFORT CURVE STRIP VI SCH ×4 (06:54→21:20)
[2019-12-07] MEDS: SUCRALFATE 1 GM/10 ML ORAL SUSP PO SCH ×4 (06:54→21:15)
[2019-12-07] MEDS: INSULIN LANTUS (GLARGINE) 1 /0.01ml (100units/ml) SC SCH (06:55)
[2019-12-07 08:39] VITALS: BP 149/73
[2019-12-07] MEDS: Glucerna Carbsteady SHAKE Vanilla 8oz PO SCH ×2 (09:28→22:00)
[2019-12-07] MEDS: LISINOPRIL 10 MG TAB PO SCH (09:28)
[2019-12-07] MEDS: CARVEDILOL 3.125 MG TAB PO SCH ×2 (09:28→21:15)
[2019-12-07] MEDS: MORPHINE SULF INJ 2 MG/ML SYRINGE 1ML IV PRN ×2 (09:29→21:14)
[2019-12-07] MEDS ORDERED: POTASSIUM EFFERVESENT TAB 25 MEQ PO ONE (11:00)
[2019-12-07] MEDS ORDERED: LOPERAMIDE 2 mg/15ml ORAL soln PO ONE (11:00)
[2019-12-07] MEDS ORDERED: FUROSEMIDE 40 MG/4 ML VIAL IV ONE (11:00)
[2019-12-07] MEDS: CHOLESTYRAMINE 4 GM POWDER PO SCH ×3 (11:24→22:25)
--- NOTE | 2019-12-07 12:51 | NUR ---
Nutrition Followup Note Wt 75.8kg Pt was sleeping at time of rounds. Pt with no new signs of distress. Pt is s/p lap wilbert with diet advanced to full liquid diet. Pt with fair intake of 55% of full liquid diet 12/05-12/06 per RN note. Will continue to monitor po advance and intake. Est enegy needs 9746-7340 kcal (20-25 kcal/kg BW 76kg) est protein needs 61-76g (0.8-1g/kg BW 76kg) will reassess prn. Labs: GLUC 157H, Ca 7.4L, Alb 1.6L BM: pt with diarrhea / per Rn note, pt with 8 BMs per Rn doc Skin: BS 18 mod risk, full details in progressive care nurse note. PES: Overweight r/t caloric intake in excess of needs aeb pt with a BMI of 28.8 kg/m2 Comments: 1) Continue to monitor po intake, labs, skin 2) refer pt to [facility] on Dc 3) Continue current plan of care Expected Outcomes/Goals: 1) Advance diet as medically feasible to CCHO 60g 2) pt to consume >75% of po intake when advanced 3) f/u 3-5 days
[2019-12-07 13:00] VITALS: BP 133/57
--- NOTE | 2019-12-07 13:54 | NUR ---
GI Dr. Adam rounded on patient.
[2019-12-07 17:00] VITALS: BP 151/70
--- NOTE | 2019-12-07 17:00 | NUR ---
Theresaran powder Non-admit this dose due to requirements to administer 1 hour after other medications. Administered Carafate early, and is now waiting on pharmacy to send Imodium for patient.
[2019-12-07] MEDS: LOPERAMIDE 2 mg/15ml ORAL soln PO PRN (18:04)
--- NOTE | 2019-12-07 18:04 | NUR ---
Questran Non-admit Imodium received and administered, will be too late for Questran powder administration before her 2200 dose. Will notify night time nanny RN.
--- NOTE | 2019-12-07 19:25 | NUR ---
Opening Shift Note Received report from Meryl CHAUDHARY. Assumed care of patient, awake and alert. No S/S of distress/SOB or pain. Instructed on POC and to call for assist PRN. Fall precaution measures in place,will continue to monitor for changes Q1hr and PRN.
[2019-12-07] MEDS: ATORVASTATIN 20 MG TAB PO SCH (21:15)
[2019-12-07 22:00] VITALS: BP 138/87
[2019-12-08] MEDS: LOPERAMIDE 2 mg/15ml ORAL soln PO PRN (02:49)
[2019-12-08] MEDS: MORPHINE SULF INJ 2 MG/ML SYRINGE 1ML IV PRN ×2 (02:49→10:07)
[2019-12-08 05:00] VITALS: BP 158/73
[2019-12-08] MEDS: SUCRALFATE 1 GM/10 ML ORAL SUSP PO SCH ×3 (06:26→17:00)
[2019-12-08 06:37] LABS: Basophils # (auto) 0 10 ^3/uL (0-0.2); Basophils % (auto) 0.2 % (0.0-2.0); Eosinophils # (auto) 0.1 10 ^3/uL (0-0.8); Eosinophils % (auto) 0.5 % (0.0-7.0); Hematocrit 31.7 % (36.0-46.0); Hemoglobin 10.5 g/dL (12.2-16.2); Lymphocytes % (auto) 15.9 % (10.0-50.0); Mean Corpuscular Hgb Conc. 33.1 g/dL (32.0-36.0); Mean Corpuscular Volume 87.6 fL (80.0-100.0); Monocytes # (auto) 1.9 10 ^3/uL (0-1.3); Monocytes % (auto) 14.9 % (0.0-12.0); Neutrophils # (auto) 8.8 10 ^3/uL (1.6-8.6); Neutrophils % (auto) 68.5 % (37.0-80.0); Platelet Count (auto) 264 10^3/uL (140-450); Red Blood Cells 3.62 10^6/uL (4.0-5.20); Red Cell Distribution Width 12.7 % (11.8-14.3); White Blood Cell 12.8 10^3/uL (4.4-10.8)
[2019-12-08] MEDS: ACCU-CHEK COMFORT CURVE STRIP VI SCH ×3 (06:56→17:00)
[2019-12-08] MEDS: CHOLESTYRAMINE 4 GM POWDER PO SCH ×3 (06:57→17:00)
[2019-12-08] MEDS: INSULIN LANTUS (GLARGINE) 1 /0.01ml (100units/ml) SC SCH (06:57)
[2019-12-08 07:05] LABS: Potassium 3.5 mmol/L (3.5-5.1)
[2019-12-08 07:14] LABS: BUN/Creatinine Ratio 18.4; Calcium 7.4 mg/dL (8.5-10.1)
--- NOTE | 2019-12-08 07:30 | NUR ---
Opening Shift Note Assuming care of patient at this time. Patient is resting with eyes closed. Patient shows no signs or symptoms of distress or shortness of breath. Bed is locked and lowered with side rails up x2. Will continue to round hourly and as needed. Call light within reach.
[2019-12-08 08:54] VITALS: BP 148/67
[2019-12-08] MEDS: CARVEDILOL 3.125 MG TAB PO SCH (10:00)
[2019-12-08] MEDS: LISINOPRIL 10 MG TAB PO SCH (10:01)
[2019-12-08] MEDS: Glucerna Carbsteady SHAKE Vanilla 8oz PO SCH (10:03)
[2019-12-08 13:00] VITALS: BP 129/58
[2019-12-08] MEDS ORDERED: ATOR20TA50 PO (14:31)
[2019-12-08] MEDS ORDERED: CAR3125T PO (14:31)
[2019-12-08] MEDS ORDERED: SUCR1SUS10 PO (14:31)
[2019-12-08] MEDS ORDERED: LANS30CA57 PO (14:31)
[2019-12-08 16:02] VITALS: BP 129/58
[2019-12-08 17:00] VITALS: BP 139/62
--- NOTE | 2019-12-08 18:15 | NUR ---
Discharge Discharge instructions given as ordered. Encourage to follow up with PMD as instructed. All questions and concerns addressed. Patient verbalized understanding. Medication reconciliation form completed and copy given to patient. IV removed with catheter intact, pressure dressing applied. Patient taken to vehicle via wheelchair with all personal belongings, accompanied by staff and family member. No distress noted at time of departure.
== END 2019-12-08 18:15 | disposition home health service (06) | DRG 853 ==
LOC: EDBD 17:13 → ER 17:13 → TELE 17:14 → TELE-WESTW 11-30 10:50 → WEST WING 12-06 17:51
PROVIDERS: ADMIT Hospitalist; ATTEND Internal Medicine
PROC: 0FT44ZZ Resection of Gallbladder, Percutaneous Endoscopic Approach (ICD-10-PCS; 2019-12-02)
PROC: 4A023N7 Measurement of Cardiac Sampling and Pressure, Left Heart, Percutaneous Approach (ICD-10-PCS; 2019-12-02)
PROC: B2151ZZ Fluoroscopy of Left Heart using Low Osmolar Contrast (ICD-10-PCS; 2019-12-02)
PROC: B2111ZZ Fluoroscopy of Multiple Coronary Arteries using Low Osmolar Contrast (ICD-10-PCS; principal; 2019-12-02 14:05)
PROC: 0DB58ZX Excision of Esophagus, Via Natural or Artificial Opening Endoscopic, Diagnostic (ICD-10-PCS; 2019-12-03)
PROC: 0DB68ZX Excision of Stomach, Via Natural or Artificial Opening Endoscopic, Diagnostic (ICD-10-PCS; 2019-12-03)
DX: A41.9 Sepsis, unspecified organism (principal); I21.4 Non-ST elevation (NSTEMI) myocardial infarction; E10.10 Type 1 diabetes mellitus with ketoacidosis without coma; K80.00 Calculus of gallbladder with acute cholecystitis without obstruction; N17.9 Acute kidney failure, unspecified; Q25.0 Patent ductus arteriosus; K22.10 Ulcer of esophagus without bleeding; N39.0 Urinary tract infection, site not specified; K56.7 Ileus, unspecified; K82.A1 Gangrene of gallbladder in cholecystitis; D64.9 Anemia, unspecified; R79.89 Other specified abnormal findings of blood chemistry; N18.9 Chronic kidney disease, unspecified; I25.10 Atherosclerotic heart disease of native coronary artery without angina pectoris; I12.9 Hypertensive chronic kidney disease with stage 1 through stage 4 chronic kidney disease, or unspecified chronic kidney disease; E10.22 Type 1 diabetes mellitus with diabetic chronic kidney disease; K44.9 Diaphragmatic hernia without obstruction or gangrene; K25.9 Gastric ulcer, unspecified as acute or chronic, without hemorrhage or perforation; E66.01 Morbid (severe) obesity due to excess calories; E78.5 Hyperlipidemia, unspecified; E87.6 Hypokalemia; T38.3X6A Underdosing of insulin and oral hypoglycemic [antidiabetic] drugs, initial encounter; Z82.49 Family history of ischemic heart disease and other diseases of the circulatory system; Z83.3 Family history of diabetes mellitus; Z91.19 Patient's noncompliance with other medical treatment and regimen; Z20.828 Contact with and (suspected) exposure to other viral communicable diseases; E87.70 Fluid overload, unspecified; K29.70 Gastritis, unspecified, without bleeding; M48.061 Spinal stenosis, lumbar region without neurogenic claudication; K76.0 Fatty (change of) liver, not elsewhere classified; Z88.5 Allergy status to narcotic agent; Z79.4 Long term (current) use of insulin; Z79.82 Long term (current) use of aspirin; Z68.28 Body mass index [BMI] 28.0-28.9, adult
CPT/HCPCS: 36415; 36600; 71045; 74176; 78226; 80048; 80053; 81001; 82247; 82805; 82962; 83036; 83690; 83735; 84100; 84484; 85025; 85610; 85730; 86850; 86900; 86901; 87070; 87075; 87205; 87493; 93005; 93306; 99152; 99291; C9113; G0378; J0330; J0696; J1100; J1815; J2001; J2250; J2405; J2543; J7042; Q9967